=== PATIENT | female | born 1960 | race Caucasian/White ===

== ENCOUNTER 2017-10-01 22:52 | Emergency (ER) | payer SELFPAY ==
[2017-10-01] MEDS ORDERED: Tetracaine 0.5% OPHTH SOLN/PF 4 ML BOT ONE (23:01)
[2017-10-01] MEDS ORDERED: traMADol HCl 50 MG TAB ONE ×2 (23:24)
== END 2017-10-01 23:40 | disposition home or self-care (01) ==
LOC: MADERS 22:52
DX: S05.02XA Injury of conjunctiva and corneal abrasion without foreign body, left eye, initial encounter (principal); S05.01XA Injury of conjunctiva and corneal abrasion without foreign body, right eye, initial encounter; F17.210 Nicotine dependence, cigarettes, uncomplicated
CPT/HCPCS: 99283

== ENCOUNTER 2017-10-02 00:48 | Emergency (ER) | payer SELFPAY ==
[2017-10-02] MEDS ORDERED: Morphine 4 MG/ML VIAL ONE (01:09)
[2017-10-02] MEDS ORDERED: Promethazine HCl 25 MG/ML VIAL ONE (01:09)
== END 2017-10-02 01:29 | disposition home or self-care (01) ==
LOC: MADERS 00:48
DX: S05.02XA Injury of conjunctiva and corneal abrasion without foreign body, left eye, initial encounter (principal); S05.01XA Injury of conjunctiva and corneal abrasion without foreign body, right eye, initial encounter; F17.210 Nicotine dependence, cigarettes, uncomplicated; X58.XXXA Exposure to other specified factors, initial encounter
CPT/HCPCS: 96372; J2270; J2550